=== PATIENT | male | born 1990 | race Caucasian/White ===

== ENCOUNTER 2020-03-17 21:39 | Emergency (ER) | payer OTHER, SELFPAY ==
[2020-03-17 21:53] VITALS: BP 153/97; PULSE 89; RESP 16; TEMP 37.1; O2SAT 97; BMI 28.2
--- NOTE | 2020-03-17 22:06 | ED.WOUNDLAC ---
HPI - Wound/Laceration General Chief Complaint: Wound/Laceration Stated Complaint: HEAD LAC Time Seen by Provider: 03/17/20 22:06 Source: patient Mode of arrival: ambulatory Limitations: no limitations History of Present Illness HPI narrative: Patient got laceration on scalp from the sharp edge of overhanging sprout and got superficial laceration top of the head just prior to arrival loss of consciousness no seizures no vomiting no significant headache Onset (ago): minute(s) Related Data Previous Rx's Medication Instructions Recorded amoxicillin-pot clavulanate 1 tab PO BID #20 tab 03/17/20 [Augmentin] Allergies Allergy/AdvReac Type Severity Reaction Status Date / Time No Known Allergies Allergy Verified 03/17/20 21:54 Review of Systems Review of Systems: Yes all other systems are reviewed and are negative [facility] Past Medical History Medical History No known health problems Social History Social History Smoked in Last 30 Days: No Use of substances other than those prescribed or required for medical reasons: No Any prior treatment program specific to substance use: No Advance Directives: No Advance Directives Information Provided: No Physical Exam Vital Signs: Vital Signs: Last Vital Signs Temp 98.7 F 03/17/20 21:53 Pulse 89 03/17/20 21:53 Resp 16 03/17/20 21:53 BP 153/97 H 03/17/20 21:53 Pulse Ox 97 03/17/20 21:53 Body Mass Index 28.2 Const: General: cooperative, healthy appearing, comfortable and no acute distress HENMT: Head: Yes No palpable skull fracture present and Yes normocephalic Head images: 1. Superficial laceration 2 cm Teeth and gingiva: poor dentition and other Teeth image: 1. Deep caries without gum swelling Eyes: General: appearance normal, both eyes and all related structures Resp: Effort & Inspection: normal respiratory effort Procedures Laceration Laceration 1: Site: scalp Size (cm): 2 Description: linear Depth: simple, single layer Skin layer closed with: other (Staple #5 ) Discharge Plan Discharge Clinical Impression: Laceration Patient Disposition: Home, Self-Care Instructions: Head Laceration (ED) Additional Instructions: Local care as advised staple removal in 5-7 days Prescriptions: New amoxicillin-pot clavulanate [Augmentin] 875-125 mg tablet 1 tab PO BID Qty: 20 RF: 0 Discharge Date/Time: 03/17/20 23:14
--- NOTE | 2020-03-17 22:57 | PC.NURSE ---
PT WAS ABOUT TO BE D/C AND HE REQUESTED THE DR LOOK AT HIS TEETH STATES HE HAS DENTAL PAIN TO RIGHT SIDE.
--- NOTE | 2020-03-17 22:58 | PC.NURSE ---
PT LAC CLEANED AND BARBI PLACED BY DR VILLA.
== END 2020-03-17 23:14 | disposition home or self-care (01) ==
PROVIDERS: Emergency Provider Internal Medicine
DX: S01.01XA Laceration without foreign body of scalp, initial encounter (principal); W22.8XXA Striking against or struck by other objects, initial encounter; Y93.9 Activity, unspecified; Y92.019 Unspecified place in single-family (private) house as the place of occurrence of the external cause; Y99.9 Unspecified external cause status
CPT/HCPCS: 12001; 99284